=== PATIENT | female | born 1965 | race Two or more races ===

== ENCOUNTER → 2019-05-15 | Outpatient (CLI) | payer OTHER ==
[2019-05-15 12:15] LABS: BLOOD UREA NITROGEN 14 mg/dL (7-18); CREATININE 0.7 MG/DL (0.55-1.30)
--- NOTE | 2019-05-16 15:57 | Diagnostic Imaging Report ---
Clinical Indication: Abdominal pain Technique: Patient given oral contrast. Precontrast spiral acquisitions obtained through the abdomen and pelvis. IV administration nonionic contrast. Multiphasic spiral acquisitions obtained through the abdomen and pelvis. Multiplanar reconstructions were generated. Total dose length product 2538 mGycm. CTDIvol(s) 15, 25, 46, 15, 16, 16 mGy. Dose reduction achieved using automated exposure control Comparison: none Findings: The liver demonstrates surface nodularity. There is normal in size. No focal abnormality is demonstrated. The portal veins and hepatic veins are patent. The spleen size is normal. A surgical clip or capsular calcification is seen adjacent to the dome of the spleen. No varices are evident. There is no evidence of free intraperitoneal fluid. No evidence of colonic diverticulosis or diverticulitis. The appendix is normal. No small bowel distention. No free or loculated intraperitoneal gas or fluid is evident. The gallbladder has been removed. There is no biliary ductal dilatation. The pancreas, adrenals, kidneys are unremarkable. There is incidental finding of a circumaortic left renal vein. No pelvic mass or adenopathy. Uterus and adnexal structures appear unremarkable. Delayed phase images demonstrate normal renal collecting systems and proximal ureters. There are bilateral breast implants noted. The included lung bases demonstrate posterior dependent atelectatic changes. The bones are unremarkable Impression: The CT scanner at [facility] is accredited by the [employer] and the scans are performed using protocols designed to limit radiation exposure to as low as reasonably achievable to attain images of sufficient resolution adequate for diagnostic evaluation.
== END | disposition home or self-care (01) ==
LOC: CAT 11:36
DX: R10.9 Unspecified abdominal pain (principal)
CPT/HCPCS: 36415; 74178; 82565; 84520; Q9967; 72194; 74170